=== PATIENT | male | born 1975 | race Caucasian/White ===

== ENCOUNTER 2018-12-31 14:49 | Emergency (ER) | payer BC, OTHER ==
[~2018-12-31] VITALS: Ht 175.3 cm; Wt 99.8 kg
[~2018-12-31 14:49] MED LIST: NEXIUM
[2018-12-31 14:51] VITALS: BP_SYST 168
[2018-12-31 15:37] LABS: BASOPHILS % (AUTO) 0.7 % (0.0-2.0); EOSINOPHILS # (AUTO) 0.1 K/uL (0.0-0.4); HEMOGLOBIN 15.8 g/dL (14.0-18.0); LYMPHOCYTES # (AUTO) 2.1 K/uL (1.0-5.5); LYMPHOCYTES % (AUTO) 34.2 % (20.5-51.5); MEAN CORPUSCULAR HEMOGLOBIN 32 pg (27-31); MEAN CORPUSCULAR HGB CONC 34 % (32-36); MEAN CORPUSCULAR VOLUME 94 fL (79.0-98.0); MONOCYTES # (AUTO) 0.5 K/uL (0.0-1.0); MONOCYTES % (AUTO) 8.8 % (1.7-9.3); NEUTROPHILS # (AUTO) 3.3 K/uL (1.8-7.7); NEUTROPHILS % (AUTO) 54.3 % (40.0-70.0); PLATELET COUNT (AUTO) 200 K/uL (130-430); RED BLOOD CELL COUNT(AUTO) 4.91 MIL/uL (4.2-6.2); RED CELL DISTRIBUTION WIDTH 13.5 % (9.0-15.0); WHITE BLOOD COUNT (AUTO) 6.1 K/uL (4.8-10.8)
[2018-12-31 16:17] LABS: CALCIUM 9.4 mg/dL (8.4-11.0); CREATININE 0.89 mg/dL (0.55-1.30); POTASSIUM 3.8 mmol/L (3.5-5.1)
[2018-12-31 16:18] LABS: INR 0.9 (0.80-1.20); PROTHROMBIN TIME 9.7 SECS (9.5-12.5)
[2018-12-31 16:21] LABS: ALBUMIN 4.2 g/dL (3.4-4.8); TOTAL BILIRUBIN 0.8 mg/dL (0.0-1.0)
[2018-12-31 16:50] VITALS: BP_SYST 154
== END 2018-12-31 16:50 | disposition home or self-care (01) ==
LOC: SED 14:49
DX: R07.89 Other chest pain (principal); R03.0 Elevated blood-pressure reading, without diagnosis of hypertension; K21.9 Gastro-esophageal reflux disease without esophagitis
CPT/HCPCS: 36415; 71045; 80053; 83880; 84484; 85025; 85610-TC; 85730-TC; 93005; 99284

== ENCOUNTER 2019-11-14 14:53 | Outpatient (CLI) | payer OTHER | END 2019-11-14 20:17 | disposition home or self-care (01) | LOC: SDS 14:53 | DX: I82.409 Acute embolism and thrombosis of unspecified deep veins of unspecified lower extremity (principal) | CPT/HCPCS: 93922; 93971 ==

== ENCOUNTER 2022-03-29 06:54 | Emergency (ER) | payer OTHER ==
[~2022-03-29] VITALS: Ht 175.3 cm; Wt 99.8 kg
[2022-03-29 07:06] VITALS: BP_SYST 137
--- NOTE | 2022-03-29 07:08 | NUR ---
Patient to ER bed triage to gown for evaluation. Side rails up.
--- NOTE | 2022-03-29 07:10 | NUR ---
ER in triage examining patient.
[2022-03-29] MEDS ORDERED: CARB100T PO (07:28)
--- NOTE | 2022-03-29 07:35 | NUR ---
Pt to p/u rx given to take for pain relief at home.
[2022-03-29 07:37] VITALS: BP_SYST 137
--- NOTE | 2022-03-29 07:37 | NUR ---
Patient given written and verbal discharge instructions and verbalizes understanding. ER MD discussed with patient the results and treatment provided. Patient in stable condition. ID arm band removed. Rx of tegretol XR given. Patient educated on pain management and to follow up with PMD. Pain Scale . Opportunity for questions provided and answered. Medication side effect fact sheet provided.
== END 2022-03-29 07:37 | disposition home or self-care (01) ==
LOC: SED 06:54
DX: G50.0 Trigeminal neuralgia (principal)
CPT/HCPCS: 99283